=== PATIENT | male | born 1975 | race African-American/Black ===

== ENCOUNTER → 2017-12-18 | Outpatient (CLI) | payer BC ==
[~2017-12-18] MED LIST: ALBUTEROL INH; ALBUTEROL INHAL17 GM IH; ALBUTEROL2.5 MG/31; ALBUTEROL2.5 MG/32 IH; AUGMENTIN 875875 M1 PO; BENADRYL25 MG PO; CARISOPRODOL 3350 MG PO; CLARITIN10 MG PO; DUONEB 2.5-0.5 M3 ML IH; LORTAB 5 MG/5001 TA1 PO; NORCO 5-325 TA1 EACH PO; PREDNISONE 20 M20 MG PO; PROAIR HFA8.5 GM IH; RANITIDINE 150150 M1; SYMBICORT160 MCG/4.; SYMBICORT80 MCG/4.5; ZETONNA6.1 GM; ZYRTEC 10 MG TA10 M1 PO; ZYRTEC10 M2 PO
== END ==
LOC: CAT 09:56
DX: J45.51 Severe persistent asthma with (acute) exacerbation (principal); J01.91 Acute recurrent sinusitis, unspecified; J30.1 Allergic rhinitis due to pollen

== ENCOUNTER → 2018-02-05 | Outpatient (CLI) | payer BC | LOC: RAD 09:19 | DX: J45.51 Severe persistent asthma with (acute) exacerbation (principal) ==

== ENCOUNTER → 2019-01-09 | Outpatient (CLI) | payer BC ==
[2019-01-09 08:17] LABS: ABSOLUTE NEUTROPHILS 5.9 thou/uL (1.4-8.2); BASOPHILS 0.2 % (0.0-2.0); EOSINOPHILS 0.1 % (0.0-3.0); HEMATOCRIT 44.2 % (42.0-52.0); HEMOGLOBIN 14.4 gm/dL (14.0-18.0); LYMPHOCYTES 11.4 % (24.0-44.0); MCH 25.8 pg (26.0-34.0); MCHC 32.6 g/dL (28.0-37.0); MCV 79.2 fL (80.0-100.0); MONOCYTES 0.7 % (1.0-8.0); PLATELET COUNT 332 thou/uL (150-400); POLYS 87.6 % (36.0-66.0); RBC 5.58 mil/uL (4.50-6.00); RDW 14.1 % (10.5-14.5); WBC 6.7 thou/uL (4.0-11.0)
[2019-01-09 08:36] LABS: ALBUMIN 4.1 g/dL (3.4-5.0); CALCIUM 9.8 mg/dL (8.5-10.1); CREATININE 0.9 mg/dL (0.7-1.3); POTASSIUM 5.2 mmol/L (3.5-5.1); TOTAL BILIRUBIN 0.4 mg/dL (<0.1-1.0); TOTAL PROTEIN 7.9 g/dL (6.4-8.2)
== END ==
LOC: CAT 07:51
PROVIDERS: Internal Medicine Cardiovascular Disease
DX: I48.91 Unspecified atrial fibrillation (principal); M47.816 Spondylosis without myelopathy or radiculopathy, lumbar region

== ENCOUNTER 2019-01-13 06:48 | Observation (INO) | payer BC ==
[~2019-01-13] VITALS: Ht 185.4 cm; Wt 151.4 kg
[2019-01-13 07:21] VITALS: BP 121/77
[2019-01-13 07:26] LABS: ABSOLUTE NEUTROPHILS 3.7 thou/uL (1.4-8.2); BASOPHILS 0.4 % (0.0-2.0); EOSINOPHILS 6.2 % (0.0-3.0); HEMATOCRIT 43.3 % (42.0-52.0); LYMPHOCYTES 38.8 % (24.0-44.0); MCH 25.5 pg (26.0-34.0); MCHC 32.4 g/dL (28.0-37.0); MCV 78.9 fL (80.0-100.0); MONOCYTES 6.6 % (1.0-8.0); PLATELET COUNT 288 thou/uL (150-400); RBC 5.48 mil/uL (4.50-6.00); RDW 13.9 % (10.5-14.5); WBC 7.7 thou/uL (4.0-11.0)
[2019-01-13 07:35] LABS: CALCIUM 9.1 mg/dL (8.5-10.1); CREATININE 0.7 mg/dL (0.7-1.3); POTASSIUM 3.5 mmol/L (3.5-5.1)
[2019-01-13 07:40] LABS: APTT 29.3 Seconds (24.5-32.8); PROTIME 10.7 Seconds (9.3-11.4)
[2019-01-13 07:44] LABS: ALBUMIN 3.8 g/dL (3.4-5.0); TOTAL BILIRUBIN 0.6 mg/dL (<0.1-1.0); TOTAL PROTEIN 7.4 g/dL (6.4-8.2)
[2019-01-13] MEDS ORDERED: ELIQUIS5 MG PO (07:44)
[2019-01-13] MEDS ORDERED: DIGOXIN250 MCG PO (07:45)
[2019-01-13] MEDS ORDERED: FLECAINIDE ACET50 M1 PO (07:45)
[2019-01-13] MEDS ORDERED: CARDIZEM CD240 MG PO (07:45)
[2019-01-13] MEDS ORDERED: HYDROXYZINE HCL25 M1 PO (07:46)
[2019-01-13] MEDS ORDERED: LISINOPRIL40 MG PO (07:46)
[2019-01-13] MEDS ORDERED: METHIMAZOLE10 MG PO (07:47)
[2019-01-13] MEDS ORDERED: SINGULAIR 10 MG10 MG PO (07:47)
[2019-01-13] MEDS ORDERED: XOLAIR150 MG SUBQ (07:49)
--- NOTE | 2019-01-13 08:30 | EKG ---
[address] [address] ELECTROCARDIOGRAM REPORT Name: ADEEL CAMARILLO Room #: REG CL Bobby#: [id number] ������������������ Admission: 01/13/19 ������������������ Attend Phys: Ventura Ibrahim MD Discharge: ������������������ Date of : 73 Report #: [id number] ����������������������������������������������������������������� [id number] THIS REPORT FOR: //name// [facility] Test Date: 2019-01-13 Test Time: 07:34:07 Pat Name: ADEEL CAMARILLO Department: Room: Gender: Anesthesiology Resident: Yasmin TENA : 1975 Requested By: Ventura Ibrahim Order Number: [id number] MD: Ventura Ibrahmi Measurements Intervals [place] Rate: 140 P: 256 MN: 142 QRS: -76 QRSD: 148 T: 67 QT: 326 QTc: 498 Interpretive Statements Typical atrial flutter No previous ECG available for comparison Electronically Signed On 01-13-2019 8:30:21 STANDARD MACHINE STITCHER by Ventura Ibrahim [email or web address] ��������������������������������������������� <ELECTRONICALLY SIGNED> ���������������������������������������� By: Ventura Ibrahim MD ��������������������������������������������� 01/13/19 0830 0734 0734 Ventura Ibrahim MD /ARGELIA
--- NOTE | 2019-01-13 13:30 | NUR ---
RECEIVED FROM HOLDING AREA. VSS NSR, R/L GROIN VENOUS SITES INTACT, NO HEMATOMA , NO BRUIT HEARD. PT AWARE BEDREST FOR 6 HOURS. SEE DATA FLOW SHEET FOR FREQUE VS AND GROIN CHECKS. PT STILL C/O LEFT EYE PAIN SINCE HE WIKE UP FROM ANESTHESIA. ORDERED GTTS WORK FOR RELIEVING PAIN FOR LITTLE WHILE. FOLE CATH INTACT, DRAINING YELLOW URINE. WILL CONTINUE TO MONITER AND CARE FOR PT PER PLAN OF CARE
[2019-01-13 16:00] VITALS: BP 148/89
[2019-01-13 20:06] VITALS: BP 133/74
[2019-01-14 00:26] VITALS: BP 119/68
--- NOTE | 2019-01-14 03:03 | NUR ---
ASSESSMENTS CHARTED. AT SHIFT CHANGE, PATIENT AND HIS WERE UPSET THAT THE PATIENT WOKE UP FROM SURGERY WITH LEFT EYE PAIN. DOCTOR WALTERS WAS WITH THE PATIENT ASSESSING THE PROBLEM. DR. WALTERS DIAGNOSED A CORNEA ABRASION AND RECOMMENDED ONE TIME PAIN MED AND TIMELINE OF HEALING OF 24-48 HOURS. PATIENT RESTED WITH EYE CLOSED AFTER RECEIVING PAIN MED. REPORTED EYE FELT MUCH BETTER WITH TIME. DR WALTERS REMOVED RIGHT GROIN SUTURES WHILE HERE. ACCESS SITES WERE DRESSED WITH WOVEN GAUZE AND TRANSPARENT DRESSING. SITES ARE CLEAN, DRY, INTACT. PATIENT SHOULD BE DISCHARGED HOME TODAY.
[2019-01-14 04:06] VITALS: BP 111/77
[2019-01-14 07:40] VITALS: BP 128/70
[2019-01-14 08:42] VITALS: BP 128/70
[2019-01-14 09:24] VITALS: BP 128/70
--- NOTE | 2019-01-17 12:16 | P ---
[facility] [address] PROCEDURE REPORT Name: ADEEL CAMARILLO Room #: 209-P [facility] M..#: [id number] Admission: 01/13/19 ������������������ Attend Phys: Ventura Ibrahim MD Discharge: 01/14/19 ������������������ Date of : 73 Report #: [id number] THIS REPORT FOR: //name// CC: Ventura Yanez Deshaun Son DATE OF SERVICE: 01/13/2019 PREOPERATIVE DIAGNOSES: 1. Atrial fibrillation. 2. Typical atrial flutter. POSTOPERATIVE DIAGNOSES: 1. Atrial fibrillation. 2. Typical atrial flutter. HISTORY OF PRESENT ILLNESS: The patient is a 43-year-old male with recurrent atrial fibrillation and typical atrial flutter who has undergone cardioversion multiple times and developed recurrent typical atrial flutter with rapid ventricular response. He has also recently been diagnosed with hyperthyroidism, which is being treated medically. He is here for AFib ablation. PROCEDURES PERFORMED: 1. AFib ablation, CPT code 77252. 2. 3D mapping, CPT code 62844. 3. Intracardiac echocardiography, CPT code 02317. 4. Second pathway ablation for typical atrial flutter, CPT code 31179. ANESTHESIA: The patient underwent general anesthesia with no anesthesia related complications. DESCRIPTION OF PROCEDURE: The patient underwent informed consent. We discussed the details of the procedure including the risks, which include but not limited to bleeding, vascular damage, cardiac perforation as well as stroke or ID. He understood these risks and is willing to proceed. The patient was brought to the EP Laboratory in a fasting and nonsedated state and prepped and draped in a sterile fashion. I obtained access to the bilateral femoral veins. I placed two 8-Azeri short sheaths in the right femoral vein and a 7 and 9-Azeri short sheath in the left femoral vein using the modified Seldinger technique. Next, under fluoroscopy, I placed a decapolar catheter into the coronary sinus. Of note, this catheter fell out of the coronary sinus multiple times during the procedure as it primarily wanted to sit in a more ventricular branch. The ICE catheter was placed into the right atrium and I created a detailed 3D geometry of the left atrium using [employer] and I merged [facility] [address] [place] [address] PROCEDURE REPORT Name: ADEEL CAMARILLO Room #: 209-P [facility]..#: [id number] Admission: 01/13/19 ������������������ Attend Phys: Ventura Ibrahim MD Discharge: 01/14/19 ������������������ Date of : 73 Report #: [id number] this with the cardiac CT scan. The patient at baseline was in atrial flutter with a ventricular cycle length of 460 milliseconds and atrial cycle length of 230 milliseconds with the proximal and distal activation along the decapolar catheter in the CS. The QRS duration was 100 milliseconds and the QT interval was 325 milliseconds. Next, transseptal was performed using a SL1 sheath and a Spencer needle and this was straightforward. 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 This made crossing with the transseptal sheath a little more challenging, but I was able to advance this into the left superior pulmonary vein with no issues. I then placed the Lasso catheter into the left atrium and created a detailed 3D geometry of the left atrium, the pulmonary veins and the left atrial appendage and then the SL1 sheath was exchanged for the cryo sheath and ablation was performed of the pulmonary veins. The left superior pulmonary vein was isolated in one freeze within 34 seconds. I performed a single 4-minute freeze. I then turned my attention to the left inferior pulmonary vein. This vein isolated within 42 seconds and I performed a single 4-minute freeze. I then turned my attention to the right superior pulmonary vein. I could not really see electrograms in this vessel very well. I performed an initial freeze of only 60 seconds as the temperatures were -50 degrees. I performed a second freeze of 130 seconds, a third freeze of only 55 seconds because attempts were -50, and a forth freeze of 130 milliseconds as attempts also went below -50 degrees. There was never any phrenic nerve compromised during this vein. It appeared it was likely isolated either during the first or second freezes based on me pulling the sheath back close to the ostium of the right vein. I then turned my attention to the right inferior pulmonary vein. I performed a 4-minute freeze and this vein did not isolate. I performed a third freeze that was 3 minutes of duration. During this freeze, I did ablate the lower aspect of the right inferior pulmonary vein and the vein isolated within 24 seconds. Next, I took out the cryoablation balloon and performed a post-ablation voltage map of the left atrium, which showed that we had created a wide circumferential ablation of the pulmonary veins with clear isolation of all veins. Ablation of typical cavotricuspid isthmus dependent flutter. Next, I placed an 8-mm ablation catheter into the right atrium and created an activation map of the flutter. This was consistent with a cavotricuspid isthmus dependent flutter. Entrainment from the tricuspid annulus at 6 o'clock was also consistent with cavotricuspid isthmus dependent flutter. I then placed a ramp sheath into the right atrium and the ablation catheter via the ramp sheath. Ablation was performed at 70 kimball and 60 degrees. A continuous drag lesion was created along the mid isthmus. There was termination of his atrial flutter. I continued ablating until it fell into the IVC. There was evidence of a ridge that we could see on an intracardiac ultrasound and I did perform additional ablation in this region where there was still some sharp electrograms. Post-ablation, there was evidence of bidirectional block with transisthmus conduction time of 155 milliseconds. Post-ablation, the patient was in sinus [facility] [address] [place] [address] PROCEDURE REPORT Name: ADEEL CAMARILLO Room #: 209-P [facility]..#: [id number] Admission: 01/13/19 ������������������ Attend Phys: Ventura Ibrahim MD Discharge: 01/14/19 ������������������ Date of : 73 Report #: [id number] rhythm with a sinus cycle length of 716 milliseconds, WI interval 160 milliseconds, QRS duration 109 milliseconds, QT interval 375 milliseconds. Using intracardiac ultrasound, I verified there was no pericardial effusion. As such, the patient received systemic protamine and once the ACT was within the acceptable range, catheters and sheaths were pulled and hemostasis was obtained. I did perform a zciijh-pd-oarst stitch on his right groin sheaths given his morbid obesity. The patient remained hemodynamically and neurologically intact with no complications. CONCLUSIONS: 1. Successful AFib ablation with isolation of the four pulmonary veins. 2. Successful cavotricuspid isthmus dependent flutter ablation with evidence of bidirectional block. ��������������������������������������������� <ELECTRONICALLY SIGNED> ���������������������������������������� By: Ventura Ibrahim MD ��������������������������������������������� 01/17/19 1216 1201 0951 Ventura Ibrahim MD /nt
--- NOTE | 2019-01-17 12:17 | D ---
[facility] [place] [address] DISCHARGE SUMMARY Name: ADEEL CAMARILLO Room #: 209-P [facility] Noble Rosales#: [id number] Admission: 01/13/19 ������������������ Attend Phys: Ventura Ibrahim MD Discharge: 01/14/19 ������������������ Date of : 73 Report #: [id number] THIS REPORT FOR: //name// CC: Ventura Yanez Deshaun Son DATE OF SERVICE: 01/14/2019 DISCHARGE DIAGNOSES: 1. Atrial fibrillation 2. Typical atrial flutter. 3. Hyperthyroidism. HISTORY OF PRESENT ILLNESS: The patient is a 43-year-old recently diagnosed with atrial fibrillation and typical atrial flutter. He has had a recent cardioversions and has returned to atrial flutter with rapid ventricular response. As such, he was here for an AFib and atrial flutter ablation. He underwent a CT scan prior to the procedure showing normal left atrial anatomy. He had a prior transesophageal echo performed at [facility] that showed no evidence of left atrial appendage thrombus. PROCEDURES: The patient underwent successful AFib ablation. We isolated his four pulmonary veins using cryoablation balloon. I then performed an atrial flutter ablation for cavotricuspid isthmus dependent flutter with acute termination and evidence of bidirectional block. HOSPITAL COURSE: The patient did well overnight in the CCU. It appears that at some point, he has scratched his eye and likely has a corneal abrasion. He was given ibuprofen and the pain was improved on the day of discharge. On the day of discharge, he denied any chest pain or shortness of breath. PHYSICAL EXAMINATION: EYES: On exam, his eye appears to be better, less red. HEART: Regular rate and rhythm with no murmurs, rubs, gallops. LUNGS: Clear to auscultation bilaterally. ABDOMEN: Soft, nontender. Bilateral groins showed no significant bruising or hematoma. On telemetry, he remained in sinus rhythm throughout the evening. As such, he was deemed stable for discharge home. We will discharge him on his Eliquis, flecainide 50 b.i.d., diltiazem 240, and we will discontinue his digoxin as he is no longer bradycardic. He will continue with his methimazole for his hyperthyroidism which has been recently diagnosed, and hopefully, we will see an die try out worker in the near future. [address] [address] DISCHARGE SUMMARY Name: ADEEL CAMARILLO Room #: 209-P [facility] Bobby#: [id number] Admission: 01/13/19 ������������������ Attend Phys: Ventura Ibrahim MD Discharge: 01/14/19 ������������������ Date of : 73 Report #: [id number] Discharge instructions were reviewed. He has a followup appointment with my nurse practitioner in 2 weeks, and he will see me in 3 months. ��������������������������������������������� <ELECTRONICALLY SIGNED> ���������������������������������������� By: Ventura Ibrahim MD ��������������������������������������������� 01/17/19 1217 0840 1624 Ventura Ibrahim MD /lexi
== END 2019-01-14 11:36 | disposition home or self-care (01) ==
LOC: CATH 06:48 → 2N 13:58
PROVIDERS: ADMIT Internal Medicine Cardiovascular Disease
DX: I48.91 Unspecified atrial fibrillation (principal); I48.3 Typical atrial flutter; E05.90 Thyrotoxicosis, unspecified without thyrotoxic crisis or storm; Z79.01 Long term (current) use of anticoagulants; Z79.899 Other long term (current) drug therapy
CPT/HCPCS: 62110; 62900; 65020; 65040; 70005

== ENCOUNTER → 2019-06-10 | Outpatient (CLI) | payer BC ==
[~2019-06-10] MED LIST changes: +CARDIZEM CD240 MG PO; +DIGOXIN250 MCG PO; +ELIQUIS5 MG PO; +FLECAINIDE ACET50 M1 PO; +HYDROXYZINE HCL25 M1 PO; +LISINOPRIL40 MG PO; +METHIMAZOLE10 MG PO; +SINGULAIR 10 MG10 MG PO; +XOLAIR150 MG SUBQ
== END ==
LOC: RAD 15:30
DX: J45.40 Moderate persistent asthma, uncomplicated (principal); Z88.8 Allergy status to other drugs, medicaments and biological substances; Z91.013 Allergy to seafood

== ENCOUNTER → 2020-04-13 | Outpatient (CLI) | payer OTHER | LOC: CAT 08:21 | DX: Z13.6 Encounter for screening for cardiovascular disorders (principal); I25.10 Atherosclerotic heart disease of native coronary artery without angina pectoris; E78.00 Pure hypercholesterolemia, unspecified ==

== ENCOUNTER → 2020-11-01 | Outpatient (CLI) | payer BC | LOC: LAB 08:51 | PROVIDERS: ATTEND Family Medicine | DX: Z20.828 Contact with and (suspected) exposure to other viral communicable diseases (principal) ==

== ENCOUNTER → 2021-07-22 | Outpatient (CLI) | payer BC | LOC: SJCVCIMAG 07-19 08:16 | PROVIDERS: ATTEND Internal Medicine Cardiovascular Disease | DX: I48.91 Unspecified atrial fibrillation (principal) ==